=== PATIENT | female | born 1955 | race Caucasian/White ===

== ENCOUNTER → 2017-09-17 | Outpatient (CLI) | payer BC ==
[2017-09-17 07:48] LABS: HCT 42.4 % (34.0-46.0); HGB 13.8 gm/dL (11.4-16.0); MCH 29.2 pg (25.0-35.0); MCHC 32.6 g/dL (31.0-37.0); MCV 89.7 fL (80.0-100.0); Mean Platelet Volume 7.2; Platelet Count 297 k/uL (150-450); RBC 4.73 m/uL (3.80-5.40); RDW 12.7 % (11.5-15.5); WBC 8.3 k/uL (3.8-10.6)
[2017-09-17 08:23] LABS: Calcium 9.1 mg/dL (8.4-10.2); Potassium 4.3 mmol/L (3.5-5.1); Total Bilirubin 0.4 mg/dL (0.2-1.3); Total Protein 7.8 g/dL (6.3-8.2)
[2017-09-17 08:25] LABS: Appearance,Urine Clear (Clear); Bacteria,Urine Rare /hpf; Bilirubin,Urine Negative (Negative); Blood,Urine Negative (Negative); Color,Urine Yellow; Glucose,Urine (UA) Negative (Negative); Hyaline Casts,Urine 1 /lpf (0-2); Ketones,Urine Negative (Negative); Leukocyte Esterase,Urine Large (Negative); Mucus,Urine Rare /hpf; Protein,Urine Negative (Negative); RBC,Urine 2 /hpf (0-5); Specific Gravity,Urine 1.016 (1.001-1.035); Squamous Epithelial Cell,Urine 4 /hpf (0-4); WBC,Urine 14 /hpf (0-5)
[2017-09-17 08:33] LABS: T4, Free (Free Thyroxine) 1.4 ng/dL (0.78-2.19)
== END | disposition home or self-care (01) ==
LOC: LABWHC1 07:28
PROVIDERS: ATTEND Internal Medicine
DX: Z00.00 Encounter for general adult medical examination without abnormal findings (principal); E03.9 Hypothyroidism, unspecified; E78.5 Hyperlipidemia, unspecified; K58.9 Irritable bowel syndrome, unspecified; M19.90 Unspecified osteoarthritis, unspecified site; I10 Essential (primary) hypertension
CPT/HCPCS: 36415; 80053; 80061; 81001; 84439; 84443; 85027

== ENCOUNTER → 2018-10-30 | Outpatient (CLI) | payer BC ==
--- NOTE | 2018-10-30 16:52 | BD ---
EXAMINATION TYPE: Axial Bone Density DATE OF EXAM: 10/30/2018 COMPARISON: NONE CLINICAL HISTORY: Height: 5 FT 3 IN Weight: 175 FRAX RISK QUESTIONS: Secondary Osteoporosis: 3. Menopause before 45: YES RISK FACTORS HISTORY OF: Surgery to Spine/Hip(right/left)/Wrist (right/left): C SPINE FUSION When: 2009 Active: YES Postmenopausal woman: PART HYST AGE 41 MEDICATIONS: Thyroid Medications: YES Which medication: LEVOTHYROXINE How Long: APPROX 15 YEARS Additional Medications: LEVOTHYROXINE, BLOOD PRESSURE MEDS ,VIT D Additional History: EXAM MEASUREMENTS: Bone mineral densitometry was performed using the [employer] System. Bone mineral density as measured about the Lumbar spine is: ----- L1-L4(G/cm2): 1.227 T Score Values are as follows: ----- L2: 0.7 ----- L3: 0.6 ----- L4: -0.9 ----- L1-L4: 0.4 BASELINE Bone mineral density about the R hip (g/cm2): 0.939 Bone mineral density about the L hip (g/cm2): 0.976 T Score values are as follows: -----R Neck: -0.7 -----L Neck: -0.4 -----R Total: 0.3 -----L Total: 0.4 BASELINE IMPRESSION: Normal (Values between +1 and -1 indicate normal bone mass). Consider repeating this study in 5 year s or sooner if there is some new clinical indication. NOTE: T-SCORE=SD OF THE YOUNG ADULT MEAN.
--- NOTE | 2018-10-31 11:18 | MM ---
Reason for exam: screening (asymptomatic). Last mammogram was performed 2 years and 4 months ago. History: Benign excisional biopsy of the left breast, 2003. Physical Findings: A clinical breast exam by your physician is recommended on an annual basis and results should be correlated with mammographic findings. MG Screening Mammo w CAD Bilateral CC and MLO view(s) were taken. Prior study comparison: June 21, 2016, mammogram, performed at [facility]. June 17, 2015, mammogram, performed at [facility]. There are scattered fibroglandular densities. Previous mammotome biopsy in the left breast. Anterior lateral asymmetric density not seen previously. ASSESSMENT: Incomplete: need additional imaging evaluation, BI-RAD 0 RECOMMENDATION: Special view mammogram of the right breast. If lesion persists on supplemental views, image directed ultrasound is recommended. [facility] will attempt to contact patient to return for supplemental views and ultrasound if indicated.
== END | disposition home or self-care (01) ==
LOC: RADMAMWWP 15:19
PROVIDERS: ATTEND Internal Medicine
DX: Z12.31 Encounter for screening mammogram for malignant neoplasm of breast (principal); Z13.820 Encounter for screening for osteoporosis; Z78.0 Asymptomatic menopausal state
CPT/HCPCS: 77067; 77080

== ENCOUNTER → 2018-11-06 | Outpatient (CLI) | payer BC ==
--- NOTE | 2018-11-06 10:55 | MM ---
Reason for exam: additional evaluation requested from abnormal screening. Last mammogram was performed less than 1 month ago. History: Benign excisional biopsy of the left breast, 2003. Physical Findings: Nurse did not find any significant physical abnormalities on exam. MG Work Up Mamm w CAD RT Spot compression CC and ML view(s) were taken of the right breast. Prior study comparison: October 30, 2018, bilateral MG screening mammo w CAD. June 21, 2016, mammogram, performed at [facility]. There are scattered fibroglandular densities. The questioned asymmetric density does not persist. No significant new findings when compared with previous films. These results were verbally communicated with the patient and result sheet given to the patient on 11/06/18. ASSESSMENT: Negative, BI-RAD 1 RECOMMENDATION: Return to routine screening mammogram schedule for both breasts.
== END | disposition home or self-care (01) ==
LOC: RADMAMWWP 10:05
PROVIDERS: ATTEND Internal Medicine
DX: R92.8 Other abnormal and inconclusive findings on diagnostic imaging of breast (principal)
CPT/HCPCS: 77065

== ENCOUNTER → 2020-05-28 | Outpatient (CLI) | payer BC | END | disposition home or self-care (01) | LOC: LABWHC1 13:53 | PROVIDERS: ATTEND Internal Medicine | DX: Z20.828 Contact with and (suspected) exposure to other viral communicable diseases (principal) | CPT/HCPCS: U0003; C9803 ==

== ENCOUNTER → 2020-08-29 | Outpatient (CLI) | payer BC ==
--- NOTE | 2020-09-01 11:51 | MM ---
Reason for exam: screening (asymptomatic). Last mammogram was performed 1 year and 10 months ago. History: Patient is postmenopausal. Benign excisional biopsy of the left breast, 2003. Physical Findings: A clinical breast exam by your physician is recommended on an annual basis and results should be correlated with mammographic findings. MG 3D Screening Mammo W/Cad Bilateral CC and MLO view(s) were taken. Prior study comparison: October 30, 2018, bilateral MG screening mammo w CAD. June 21, 2016, mammogram, performed at [facility]. There are scattered fibroglandular densities. Previous mammotome biopsy in the left breast. No significant changes when compared with prior studies. ASSESSMENT: Negative, BI-RAD 1 RECOMMENDATION: Routine screening mammogram of both breasts in 1 year.
== END | disposition home or self-care (01) ==
LOC: RADMAMWWP 09:33
PROVIDERS: ATTEND Internal Medicine
DX: Z12.31 Encounter for screening mammogram for malignant neoplasm of breast (principal)
CPT/HCPCS: 77063; 77067

== ENCOUNTER → 2021-07-18 | Outpatient (CLI) | payer MEDICARE ==
[2021-07-18 09:32] LABS: Appearance,Urine Clear (Clear); Bilirubin,Urine Negative (Negative); Blood,Urine Negative (Negative); Color,Urine Yellow; Glucose,Urine (UA) Negative (Negative); Ketones,Urine Negative (Negative); Leukocyte Esterase,Urine Moderate (Negative); Mucus,Urine Rare /hpf; Nitrite,Urine Negative (Negative); Protein,Urine Trace (Negative); RBC,Urine 3 /hpf (0-5); Specific Gravity,Urine 1.025 (1.001-1.035); Squamous Epithelial Cell,Urine 2 /hpf (0-4); WBC,Urine 12 /hpf (0-5)
[2021-07-18 11:33] LABS: HCT 44.3 % (37.2-46.3); HGB 13.9 g/dL (12.0-15.0); MCH 28.9 pg (27.0-32.0); MCHC 31.4 g/dL (32.0-37.0); MCV 92.1 fL (80.0-97.0); Mean Platelet Volume 10.1 fL (9.5-12.2); Platelet Count 310 X 10*3/uL (140-440); RBC 4.81 X 10*6/uL (4.10-5.20); RDW 12.5 % (11.5-14.5); WBC 10.14 X 10*3/uL (4.50-10.00)
[2021-07-18 11:54] LABS: ALT 17 U/L (8-44); AST 22 U/L (13-35); African American GFR (CKD) 86.7 (60.0-200.0); Albumin 4.2 g/dL (3.8-4.9); Alkaline Phosphatase 92 U/L (41-126); BUN/Creat Ratio 14.82 Ratio (12.00-20.00); Blood Urea Nitrogen 12.2 mg/dL (9.0-27.0); Calcium 9.6 mg/dL (8.7-10.3); Carbon Dioxide 23.1 mmol/L (20.0-27.5); Chloride 100 mmol/L (96-109); Chol/HDL Ratio 3.33 Ratio; Globulin 3.8 g/dL (1.6-3.3); Glucose 127 mg/dL (70-110); LDL Cholesterol,Calculated 86.7 mg/dL (0.0-131.0); Non-African American GFR(CKD) 74.8 (60.0-200.0); Potassium 4.4 mmol/L (3.5-5.5); Sodium 137 mmol/L (135-145)
== END | disposition home or self-care (01) ==
LOC: LABWHC1 08:03
PROVIDERS: ATTEND Internal Medicine
DX: I10 Essential (primary) hypertension (principal); E78.5 Hyperlipidemia, unspecified; E03.9 Hypothyroidism, unspecified
CPT/HCPCS: 36415; 80053; 80061; 81001; 85027

== ENCOUNTER → 2022-07-16 | Outpatient (CLI) | payer MEDICARE ==
--- NOTE | 2022-07-16 12:18 | BD ---
EXAMINATION TYPE: Axial Bone Density DATE OF EXAM: 07/16/2022 COMPARISON: 10.30.2018 CLINICAL HISTORY: 67 years year old Female. ICD-10 CODE: N95.1 post menopausal symptoms Height: 62.2 Weight: 181 FRAX RISK QUESTIONS: History of Fracture in Adulthood: YES RISK FACTORS HISTORY OF: LT ANKLE FX AN ADULT Family History of Osteoporosis: YES, MOTHER Postmenopausal woman: YES, AT 50 Hyperparathyroidism: NO Adrenal Insufficiency: NO MEDICATIONS: Thyroid Medications: YES, SYNTHROID FOR ABOUT 10 YRS Additional Medications: VIT D3, BP MED, METFORMIN, Additional History: HYPERTENSION, THYROID, DIABETIC EXAM MEASUREMENTS: Bone mineral densitometry was performed using the [employer] System. Bone mineral density as measured about the Lumbar spine is: ----- L1-L4(G/cm2): 1.189 T Score Values are as follows: ----- L1: -0.7 ----- L2: -0.8 ----- L3: 1.1 ----- L4: 0.4 ----- L1-L4: 0.1 Bone mineral density has: Decreased -3.1% SINCE....10.30.2018 Bone mineral density about the R hip (g/cm2): 1.075 Bone mineral density about the L hip (g/cm2): 1.080 T Score values are as follows: -----R Neck: -0.2 -----L Neck: 0.0 -----R Total: 0.6 -----L Total: 0.5 Bone mineral density has: Increased -3.1% SINCE 10.30.2018 FRAX%s: The graph provided illustrates a 20.7% CHANCE FOR MAJOR OSTEOPOROTIC FX AND A 0.5% CHANCE F OR HIP....PROBABILITY FOR FX IN 10 YRS TIME IMPRESSION: Normal (Values between +1 and -1 indicate normal bone mass). Consider repeating this study in 5 year s or sooner if there is some new clinical indication. NOTE: T-SCORE=SD OF THE YOUNG ADULT MEAN.
--- NOTE | 2022-07-19 08:02 | MM ---
Reason for Exam: Screening (asymptomatic). Last mammogram was performed 1 year(s) and 11 month(s) ago. Patient History: Menarche at age 14. First Full-Term at age 18. Hysterectomy at age 41. Postmenopausal. 2003, Benign Excisional Biopsy on the left side. Risk Values: Anneliese 5 year model risk: 1.4%. NCI Lifetime model risk: 5.2%. Prior Study Comparison: 10/30/2018 Bilateral Screening Mammogram, [facility]. 11/06/2018 Right Diagnostic Mammogram, [facility]. 08/29/2020 Bilateral Screening Mammogram, [facility]. Tissue Density: The breast tissue is almost entirely fat. Findings: Analyzed By CAD. There is no suspicious group of microcalcifications or new suspicious mass in either breast. Overall Assessment: Negative, BI-RAD 1 Management: Screening Mammogram of both breasts in 1 year. A clinical breast exam by your physician is recommended on an annual basis and results should be correlated with mammographic findings. [facility] will attempt to contact patient to return for supplemental views and ultrasound if indicated. Electronically signed and approved by: Pedro Soares DO
== END | disposition home or self-care (01) ==
LOC: RADBDWWP 11:24
PROVIDERS: ATTEND Obstetrics & Gynecology
DX: Z12.31 Encounter for screening mammogram for malignant neoplasm of breast (principal); I10 Essential (primary) hypertension; E11.9 Type 2 diabetes mellitus without complications; N95.1 Menopausal and female climacteric states
CPT/HCPCS: 77063; 77067; 77080

== ENCOUNTER → 2022-10-25 | Outpatient (CLI) | payer MEDICARE ==
--- NOTE | 2022-10-25 12:59 | CTL ---
EXAMINATION TYPE: CT Low Dose Lung DATE OF EXAM ORDERED: 10/25/2022 HISTORY: Z87.891 PERSONAL HISTORY OF NICOTINE DEPENDENCE. Lung cancer screening CT DLP: 87.[address] CTDI: 2.4 mGy Automated exposure control for dose reduction was used. SCREENING VISIT: First screening visit COMPARISON: None TECHNIQUE: Low dose computed tomography scan was performed through the chest at 1 mm thick sections a nd reconstructed images in multiple planes at 1 mm and [address] DIAGNOSTIC QUALITY: Satisfactory FINDINGS: LUNG NODULES: Lateral left upper lobe tumor pulmonary nodule (series 3, image 89). Left lower lobe 3 mm groundglass nodule (series 3, image 268). Left lower lobe 3 mm groundglass nodule (series 3, image 266). Small adjacent 3 mm complex nodule (series 3, image 254). Lateral left lower lobe 3 mm groundg lass pulmonary nodule (series 3, image 232). Right lower lobe subpleural 5 mm pulmonary nodule (serie s 3, image 268). Right lower lobe 3 mm ground glass nodule (series 3, image 228). Right lower lobe 5 mm pulmonary nodule (series 3, image 187). Right lower lobe 3 mm pulmonary nodule (series 3, image 19 4). LUNGS: COPD: Severity: Mild Fibrosis: Severity: None Lymph nodes: None Other findings: None RIGHT PLEURAL SPACE: Effusion: None Calcification: None Thickening: None Pneumothorax: None LEFT PLEURAL SPACE: Effusion: None Calcification: None Thickening: None Pneumothorax: None HEART: Heart Size: Normal Coronary Calcification: Small Pericardial Effusion: None OTHER FINDINGS: Upper abdomen: Small hiatal hernia. Bony thorax: No acute osseous abnormality. Anterior cervical fusion hardware partially visualized. Supraclavicular region: None Other: None IMPRESSION: 1. Bilateral pulmonary nodules measuring up to [address] 2. Mild COPD changes. CT LUNG RAD AND CT CHEST RECOMMENDATION: Lung-Rad 2 Benign Appearance or Behavior: Continue annual sc reening with LDCT in 12 months. S Modifier (other clinically significant findings): None
== END | disposition home or self-care (01) ==
LOC: RADCTMAIN 12:10
PROVIDERS: ATTEND Family Medicine
DX: Z12.2 Encounter for screening for malignant neoplasm of respiratory organs (principal); J44.9 Chronic obstructive pulmonary disease, unspecified; R91.8 Other nonspecific abnormal finding of lung field; Z87.891 Personal history of nicotine dependence
CPT/HCPCS: 71271

== ENCOUNTER → 2023-07-20 | Outpatient (CLI) | payer MEDICARE ==
--- NOTE | 2023-07-24 15:51 | MM ---
Reason for Exam: Screening (asymptomatic). Last screening mammogram was performed 12 month(s) ago. Patient History: Menarche at age 14. First Full-Term at age 18. Hysterectomy at age 41. Postmenopausal. 2004, Benign Excisional Biopsy on the left side. Niece had breast cancer, age 49. Risk Values: Anneliese 5 year model risk: 1.4%. NCI Lifetime model risk: 5.0%. Prior Study Comparison: 11/06/2018 Right Diagnostic Mammogram, [facility]. 08/29/2020 Bilateral Screening Mammogram, [facility]. 07/16/2022 Bilateral MG 3D screening mammo w/cad, [facility]. Tissue Density: There are scattered fibroglandular densities. Findings: Analyzed By CAD. The pattern is symmetrical and stable. No significant interval changes. There is a core marker within the left breast. No suspicious groups of microcalcifications, spiculated or lobular masses, architectural distortion or other secondary signs of malignancy are mammographically apparent. Overall Assessment: Benign, BI-RAD 2 Management: Screening Mammogram of both breasts in 1 year. A negative mammogram report should not preclude additional follow up of suspicious palpable abnormalities. Patient should continue monthly self breast exam. A clinical breast exam by your physician is recommended on an annual basis and results should be correlated with mammographic findings. Electronically signed and approved by: Hugh Munson D.O. Radiologis
== END | disposition home or self-care (01) ==
LOC: RADMAMWWP 15:43
PROVIDERS: ATTEND Obstetrics & Gynecology
DX: Z12.31 Encounter for screening mammogram for malignant neoplasm of breast (principal); Z78.0 Asymptomatic menopausal state; Z80.3 Family history of malignant neoplasm of breast
CPT/HCPCS: 77063; 77067

== ENCOUNTER → 2023-08-05 | Outpatient (CLI) | payer MEDICARE ==
[2023-08-05 11:16] LABS: Basophils # (A) 0.08 X 10*3/uL (0.00-0.10); Basophils % (A) 0.9 %; Eosinophils # (A) 0.35 X 10*3/uL (0.04-0.35); HCT 41.6 % (37.2-46.3); HGB 13.4 g/dL (12.0-15.0); Lymphocytes # (A) 3.04 X 10*3/uL (0.90-5.00); MCH 28.9 pg (27.0-32.0); MCHC 32.2 g/dL (32.0-37.0); MCV 89.7 FL (80.0-97.0); Mean Platelet Volume 9.9 FL (9.5-12.2); Monocytes # (A) 1.04 X 10*3/uL (0.20-1.00); NRBC Per 100 WBC 0 X 10*3/uL (0.00-0.01); Neutrophils # (A) 4.14 X 10*3/uL (1.80-7.70); Neutrophils % (A) 47.8 %; Platelet Count 298 X 10*3/uL (140-440); RBC 4.64 X 10*6/uL (4.10-5.20); RDW 12.7 % (11.5-14.5); WBC 8.68 X 10*3/uL (4.50-10.00)
[2023-08-05 11:39] LABS: ALT 16 U/L (8-44); AST 19 U/L (13-35); Albumin/Globulin Ratio 1.08 Ratio (1.60-3.17); Alkaline Phosphatase 69 U/L (41-126); BUN/Creat Ratio 17.38 Ratio (12.00-20.00); Blood Urea Nitrogen 13.9 mg/dL (9.0-27.0); Calcium 9.7 mg/dL (8.7-10.3); Carbon Dioxide 26.4 mmol/L (21.6-31.8); Chloride 103 mmol/L (96-109); Chol/HDL Ratio 3.28 Ratio; Globulin 3.7 g/dL (1.6-3.3); Glucose 116 mg/dL (70-110); LDL Cholesterol,Calculated 87.7 mg/dL (0.0-131.0); Potassium 4.2 mmol/L (3.5-5.5); Sodium 142 mmol/L (135-145); Total Bilirubin 0.4 mg/dL (0.3-1.2); Total Protein 7.7 g/dL (6.2-8.2)
[2023-08-05 12:53] LABS: Microalbumin Creatinine Ratio <7 mg/g Cr (0-30)
== END | disposition home or self-care (01) ==
LOC: LABWHC1 07:01
PROVIDERS: ATTEND Family Medicine
DX: Z00.00 Encounter for general adult medical examination without abnormal findings (principal); E11.9 Type 2 diabetes mellitus without complications; E03.9 Hypothyroidism, unspecified
CPT/HCPCS: 36415; 80053; 80061; 82043; 82570; 83036; 84443; 85025

== ENCOUNTER 2024-01-03 07:56 | Day surgery (SDC) | payer MEDICARE ==
[2023-12-28 11:48] VITALS: BMI 29.8
[~2024-01-03 07:56] MED LIST: LIDOCAINE 1% (10MG/ML) FOR IV START INTRADERMA PRN
[2024-01-03 08:22] VITALS: TEMP 98.4
[2024-01-03] MEDS: IV FLUID CONTINUATION 1,000 ML IV ONE (08:23)
[2024-01-03] MEDS: LACTATED RINGERS 1,000 ML IV SCH (08:25)
[2024-01-03 08:35] LABS: Glucose,Whole Blood 104 mg/dL (70-110)
[2024-01-03] MEDS ORDERED: PROPOFOL 10 MG/ML 20 ML VIAL IV ONE (09:14)
--- NOTE | 2024-01-03 09:43 | P.PCN ---
Date of Procedure: 01/03/24 Procedure(s) Performed: BRIEF HISTORY: Patient is a 68-year-old pleasant white female scheduled for an elective colonoscopy as a part of screening for colon cancer and family history of colon cancer. Her mother was diagnosed with colon cancer at age 87. PROCEDURE PERFORMED: Colonoscopy with snare polypectomy and tattooing with Essence ink and Endo Clip placement. PREOPERATIVE DIAGNOSIS: Screening for colon cancer and family history of colon cancer. IV sedation per Anesthesia. PROCEDURE: After informed consent was obtained, the patient, was brought into the endoscopy unit. IV sedation was administered by Anesthesia under continuous monitoring. Digital rectal examination was normal. Initially the Olympus CF-160 flexible video colonoscope was then inserted in the rectum, gradually advanced into the cecum without any difficulty. Careful examination was performed as the scope was gradually being withdrawn. Ileocecal valve and the appendiceal orifice were visualized and appeared normal. Prep was excellent. Mucosa of the cecum, had a 3 cm broad-based polyp that was removed by piecemeal snare polypectomy and complete polypectomy accomplished. In the ascending colon just proximal to the ileocecal valve there was a 1.5 cm broad-based polyp that was removed by piecemeal snare polypectomy followed by tattooing with Essence ink and Endo Clip placement. Rest of the ascending colon, transverse colon, descending colon, sigmoid colon, and rectum appeared normal. Scattered sigmoid diverticulosis. Retroflexion was performed in the rectum and no lesions were seen. The patient tolerated the procedure well. IMPRESSION: 3 cm broad-based cecal polyp status post piecemeal snare polypectomy and complete polypectomy accomplished 1.5 cm proximal ascending colon polyp just above the ileocecal valve s/p snare polypectomy followed by Endo Clip placement and tattooing with Essence ink. Scattered sigmoid diverticulosis. RECOMMENDATIONS: Findings of this examination were discussed with the patient as well as her family. She was advised to follow-up with the biopsy results. She will be seen in the office in 2 weeks. Based on the biopsy results we will plan a repeat colonoscopy in 6 months to 1 year.
[2024-01-03 09:59] VITALS: BP 148/54; PULSE 59; RESP 15
== END 2024-01-03 10:24 | disposition home or self-care (01) ==
LOC: ORWHC2ENDO 07:56
PROVIDERS: ATTEND Internal Medicine Gastroenterology
DX: C18.2 Malignant neoplasm of ascending colon (principal); K57.30 Diverticulosis of large intestine without perforation or abscess without bleeding; D12.0 Benign neoplasm of cecum; D12.2 Benign neoplasm of ascending colon; Z80.0 Family history of malignant neoplasm of digestive organs
CPT/HCPCS: 88305; 88342; 88341; 45385; 45381; J2704

== ENCOUNTER → 2024-01-10 | Outpatient (CLI) | payer MEDICARE ==
[2024-01-10 12:55] LABS: African American GFR (CKD) >90 (>60 ml/min/1.73 sqM); Blood Urea Nitrogen 14 mg/dL (7-17); Non-African American GFR(CKD) 90 (>60 ml/min/1.73 sqM)
--- NOTE | 2024-01-11 12:29 | CT ---
EXAMINATION TYPE: CT ChestAbdPelvis w con CT DLP: 2053 mGycm, Automated exposure control for dose reduction was used. DATE OF EXAM: 01/10/2024 2:18 PM COMPARISON: 10/25/2022. CLINICAL INDICATION:Female, 68 years old with history of Z12.2 SCREEN FOR MALIGNANT NEOPLASM OF RESP I; PHH, Primary adenocarcinoma, malignant neoplasm of colon, recent colonoscopy and diagnosis. Technique: CT ChestAbdPelvis w con; Multiple axial images were obtained. Two-dimensional coronal and sagittal reconstructions were obtained. Contrast used:100 mL of Isovue 300 with IV Contrast, Oral contrast used: with Oral Contrast Findings: CHEST: LUNGS/ PLEURA: Stable appearance of the pulmonary nodules. No new or enlarging pulmonary nodules. Sim ilar right lower lobe 5 mm nodule series 3 image 32 with adjacent 3 mm pulmonary nodule. Stable right costophrenic angle posteriorly elongated nodule with overall morphology. No focal consolidation, pne umothorax or pleural effusion. Mild paraseptal emphysema changes. AIRWAY: Patent and unremarkable. HEART: Size within normal limits. MEDIASTINUM: No gross evidence of adenopathy. VASCULATURE: No aortic aneurysm. MUSCULOSKELETAL: No acute osseous abnormalities. SOFT TISSUES/LYMPH NODES: Unremarkable. LOWER NECK: No significant findings. ABDOMEN: ABDOMEN LIVER: Unremarkable GALLBLADDER AND BILE DUCTS: Unremarkable. PANCREAS: Unremarkable. SPLEEN: Unremarkable. ADRENAL GLANDS: Unremarkable. KIDNEYS AND URETERS: No evidence of hydronephrosis or renal calculus. The ureters are unremarkable. PELVIS BLADDER: Unremarkable REPRODUCTIVE: Unremarkable. ABDOMEN & PELVIS STOMACH AND BOWEL: No evidence of bowel obstruction. PERITONEUM: No evidence of pneumoperitoneum or free fluid. VASCULATURE: No evidence of aortic aneurysm. MUSCULOSKELETAL: No acute osseous abnormalities LYMPH NODES: No gross evidence for lymphadenopathy. Is surgically no greater than 1.0 cm in short axi s lymph nodes. Few nonenlarged retroperitoneal lymph nodes including series 3 image 70 between the ao rta and IVC measuring 9 mm. SOFT TISSUE/ABDOMINAL WALL: Unremarkable IMPRESSION: 1. Stable pulmonary nodules. No new or enlarging pulmonary nodules. Continued surveillance recommend ed. No evidence for lymphadenopathy in the thorax abdomen or pelvis. 2. Scattered colonic diverticula.
== END | disposition home or self-care (01) ==
LOC: RADCTMAIN 11:55
PROVIDERS: ATTEND Internal Medicine Gastroenterology
DX: Z12.2 Encounter for screening for malignant neoplasm of respiratory organs (principal); C18.2 Malignant neoplasm of ascending colon; R91.8 Other nonspecific abnormal finding of lung field; K57.30 Diverticulosis of large intestine without perforation or abscess without bleeding
CPT/HCPCS: 82565; 84520; 71260; 74177; 36415; Q9967

== ENCOUNTER 2024-02-17 07:00 | Inpatient (IN) | payer MEDICARE ==
[~2024-02-17 07:00] MED LIST changes: +ACETAMINOPHEN TAB 500 MG TAB ONE; +ALVIMOPAN 12 MG CAPSULE ONE; +DEXAMETHASONE SOD PHOSPHATE 4 MG/ML 1 ML VIAL ONE; +HEPARIN SODIUM,PORCINE 5,000 UNIT/ML 1 ML VIAL ONE; +LACTATED RINGERS 1,000 ML BAG ONE; -LIDOCAINE 1% (10MG/ML) FOR IV START INTRADERMA PRN; +MIDAZOLAM 2 MG/2 ML VIAL ONE; +ONDANSETRON 4 MG/2 ML VIAL ONE; +ROPIVACAINE 5 MG/ML 30 ML VIAL ONE; +fentaNYL (PF) 50 MCG/ML 2 ML AMP ONE
[2024-02-17] MEDS ORDERED: PHENYLEPHRINE-0.9% NACL SYG 1,000 MCG/10 ML SYRINGE ONE (07:25)
[2024-02-17] MEDS ORDERED: ROPIVACAINE 5 MG/ML 30 ML VIAL ONE (07:25)
[2024-02-17] MEDS ORDERED: KETAMINE HCL IN 0.9 % NACL 50 MG/5 ML SYRINGE ONE (07:25)
[2024-02-17] MEDS ORDERED: LABETALOL 5 MG/ML VIAL MDV ONE (07:25)
[2024-02-17] MEDS ORDERED: ePHEDrine 50 MG/ML 1 ML VIAL ONE (07:25)
[2024-02-17] MEDS ORDERED: hydrALAZINE HCL 20 MG/ML 1 ML VIAL ONE (07:25)
[2024-02-17] MEDS ORDERED: HYDROmorphone (PF) 1 MG/ML ONE (07:25)
[2024-02-17] MEDS ORDERED: SUCCINYLCHOLINE CHLORIDE 200 MG/10 ML VIAL IV ONE (07:25)
[2024-02-17] MEDS ORDERED: LIDOCAINE 1% INJ 10MG/ML (20 ML MDV) ONE (07:25)
[2024-02-17] MEDS ORDERED: fentaNYL (PF) 50 MCG/ML 2 ML AMP ONE (07:25)
[2024-02-17] MEDS ORDERED: ROCURONIUM 10 MG/ML (5 ML VIAL) IV ONE (07:25)
[2024-02-17] MEDS ORDERED: SODIUM CHLORIDE 0.9% (PF) 10 ML VIAL ONE (07:25)
[2024-02-17] MEDS ORDERED: MIDAZOLAM 2 MG/2 ML VIAL ONE (07:25)
[2024-02-17] MEDS ORDERED: PROPOFOL 10 MG/ML 20 ML VIAL IV ONE (07:25)
[2024-02-17] MEDS ORDERED: NEOSTIGMINE 1 MG/ML 10 ML VIAL ONE (07:25)
[2024-02-17] MEDS ORDERED: WATER FOR INJECTION, STERILE 10 ML VIAL IV ONE (07:25)
[2024-02-17] MEDS ORDERED: GLYCOPYRROLATE 0.2 MG/ML 2 ML VIAL ONE (07:25)
[2024-02-17] MEDS ORDERED: DEXAMETHASONE SOD PHOSPHATE 4 MG/ML 1 ML VIAL ONE (07:25)
[2024-02-17] MEDS ORDERED: LIDOCAINE 1%-EPI 1:100,000 20 ML VIAL ONE (08:30)
[2024-02-17] MEDS ORDERED: ceFAZolin 1,000 MG VIAL ONE ×2 (09:00→23:59)
[2024-02-17] MEDS ORDERED: SODIUM CHLORIDE 0.9% 100 ML BAG IV ONE (09:00)
[2024-02-17] MEDS ORDERED: metroNIDAZOLE-NS PMX 500 MG/100 ML BAG ONE (09:00)
[2024-02-17 11:49] LABS: Glucose,Whole Blood 206 mg/dL (70-110)
[2024-02-17] MEDS ORDERED: INSULIN ASPART (NovoLOG) 100 UNIT/ML VIAL SQ ONE (12:15)
[2024-02-17] MEDS ORDERED: SODIUM CHLORIDE 0.9% 1,000 ML BAG ONE (12:18)
[2024-02-17] MEDS ORDERED: HEPARIN SODIUM,PORCINE 5,000 UNIT/ML 1 ML VIAL ONE ×2 (16:14→23:40)
[2024-02-17] MEDS ORDERED: metroNIDAZOLE-NS PMX 100 ML ONE ×2 (16:14→23:24)
[2024-02-17 16:55] LABS: Glucose,Whole Blood 169 mg/dL (70-110)
[2024-02-17] MEDS ORDERED: ONDANSETRON 4 MG/2 ML VIAL ONE ×4 (17:20→23:41)
[2024-02-17] MEDS ORDERED: KETOROLAC 15 MG/ML 1 ML VIAL ONE ×4 (17:20→23:24)
[2024-02-17] MEDS ORDERED: ACETAMINOPHEN TAB 500 MG TAB ONE ×2 (18:49)
[2024-02-17] MEDS ORDERED: FAMOTIDINE 20 MG/2 ML VIAL ONE ×2 (20:50)
[2024-02-17] MEDS ORDERED: ALVIMOPAN 12 MG CAPSULE ONE (20:50)
[2024-02-17] MEDS ORDERED: ACETAMINOPHEN TAB 325 MG TAB ONE ×2 (23:28)
[2024-02-17] MEDS ORDERED: SODIUM CHLORIDE 0.9% 50 ML BAG ONE (23:59)
[2024-02-17] MEDS ORDERED: D5-0.45% NACL WITH KCL 20MEQ/L 1,000 ML BAG IV ONE (23:59)
[2024-02-18 05:12] LABS: Glucose,Whole Blood 142 mg/dL (70-110)
[2024-02-18] MEDS ORDERED: KETOROLAC 15 MG/ML 1 ML VIAL ONE ×8 (05:26→23:33)
[2024-02-18] MEDS ORDERED: ACETAMINOPHEN TAB 325 MG TAB ONE ×4 (05:26→23:34)
[2024-02-18] MEDS ORDERED: ONDANSETRON 4 MG/2 ML VIAL ONE ×8 (05:27→23:34)
[2024-02-18] MEDS ORDERED: metFORMIN 500 MG TAB ONE (07:47)
[2024-02-18] MEDS ORDERED: metroNIDAZOLE-NS PMX 100 ML ONE (07:48)
[2024-02-18] MEDS ORDERED: FAMOTIDINE 20 MG/2 ML VIAL ONE ×4 (07:49→21:20)
[2024-02-18] MEDS ORDERED: HEPARIN SODIUM,PORCINE 5,000 UNIT/ML 1 ML VIAL ONE (07:50)
[2024-02-18] MEDS ORDERED: ALVIMOPAN 12 MG CAPSULE ONE (07:51)
[2024-02-18] MEDS ORDERED: CHOLECALCIFEROL 25 MCG (1000 IU) TABLET ONE (08:01)
[2024-02-18 11:48] LABS: Glucose,Whole Blood 95 mg/dL (70-110)
[2024-02-18] MEDS ORDERED: ACETAMINOPHEN TAB 500 MG TAB ONE ×4 (12:26→17:55)
[2024-02-18] MEDS ORDERED: BENZOCAINE/MENTHOL LOZENG 1 EACH LOZENGE MUCOUS MEM ONE (21:20)
[2024-02-18] MEDS ORDERED: FUROSEMIDE 10 MG/ML 2 ML VIAL ONE ×2 (22:15)
[2024-02-18] MEDS ORDERED: hydrALAZINE HCL 20 MG/ML 1 ML VIAL ONE ×2 (22:29)
[2024-02-18 23:24] LABS: Glucose,Whole Blood 86 mg/dL (70-110)
[2024-02-19] MEDS ORDERED: KETOROLAC 15 MG/ML 1 ML VIAL ONE ×2 (06:10)
[2024-02-19] MEDS ORDERED: ONDANSETRON 4 MG/2 ML VIAL ONE ×4 (06:11→12:17)
[2024-02-19] MEDS ORDERED: ACETAMINOPHEN TAB 325 MG TAB ONE ×2 (06:11)
[2024-02-19] MEDS ORDERED: CHOLECALCIFEROL 25 MCG (1000 IU) TABLET ONE (08:34)
[2024-02-19] MEDS ORDERED: HEPARIN SODIUM,PORCINE 5,000 UNIT/ML 1 ML VIAL ONE (08:36)
[2024-02-19] MEDS ORDERED: metFORMIN 500 MG TAB ONE (08:36)
[2024-02-19] MEDS ORDERED: FAMOTIDINE 20 MG/2 ML VIAL ONE ×2 (08:36)
[2024-02-19] MEDS ORDERED: amLODIPine 5 MG TAB ONE (09:59)
[2024-02-19] MEDS ORDERED: ACETAMINOPHEN TAB 500 MG TAB ONE ×2 (12:17)
--- NOTE | 2024-05-07 06:25 | P.GSHP ---
History of Present Illness H&P Date: 02/17/24 CHIEF COMPLAINT: Colon cancer HISTORY OF PRESENT ILLNESS: The patient is a 68-year-old female recently diagnosed with cecal colon cancer. She underwent cardiac risk assessment including optimization prior to surgery as well as a high-protein low carbohydrate 2-week diet. Patient presents for surgical resection. PAST MEDICAL HISTORY: Please see list. PAST SURGICAL HISTORY: Please see list. MEDICATIONS: Please see list. ALLERGIES: Please see list. SOCIAL HISTORY: No illicit drug use FAMILY HISTORY: No reports of Crohn disease or ulcerative colitis. REVIEW OF ORGAN SYSTEMS: CONSTITUTIONAL: Denies any fever or chills. HEENT: Denies any trouble with vision or nosebleeds. No difficulty swallowing. LYMPHATIC: The patient denies any lumps and bumps around the neck. ENDOCRINE: Has hypothyroidism. RESPIRATORY: Denies pneumonia. Denies any troubles with breathing or dyspnea on exertion. CARDIOVASCULAR: Denies any chest pain, palpitations, or recent heart attacks GASTROINTESTINAL: Has gastroesophageal reflux disease. New diagnosis colon cancer. GENITOURINARY: No blood in urine. MUSCULOSKELETAL: Has back pain, stiffness, joint arthritis. NEUROLOGIC: Denies any numbness or tingling along the distal extremities. No seizure disorders or headaches. PSYCHIATRIC: Denies depression or suidical ideation. HEMATOLOGIC: Denies any abnormal bleeding or bruising. PHYSICAL EXAM: VITAL SIGNS: Stable GENERAL: Well-developed pleasant in no acute distress. HEENT: No scleral icterus. Extraocular movements grossly intact. Moist buccal mucosa. NECK: Supple without lymphadenopathy. CHEST: Unlabored respirations. Equal bilateral excursions. CARDIOVASCULAR: Regular rate and rhythm. Distal 2+ pulses. ABDOMEN: Soft, nontender, nondistended. MUSCULOSKELETAL: No clubbing, cyanosis, or edema. NERUO: Cranial nerves II through XII grossly intact PSYCH: Alert and oriented to person place and time. ASSESSMENT: 1. Colon cancer, cecal. 2. Hypothyroidism 3. Hypertensive heart disease 4. Diabetes type 2, not insulin-dependent PLAN: 1. Benefits and risk of right hemicolectomy described robotic assisted approach. 2. Patient is elevated risk due to pre-existing comorbidities. 3. Inpatient hospitalization described. Past Medical History Past Medical History: Diabetes Mellitus, Hypertension, Thyroid Disorder Additional Past Medical History / Comment(s): IBSD-STABLE AT THIS TIME History of Any Multi-Drug Resistant Organisms: None Reported Past Surgical History: Adenoidectomy, Orthopedic Surgery, Tonsillectomy, Tubal Ligation Additional Past Surgical History / Comment(s): CERVICAL FUSION. COLONOSCOPY Past Anesthesia/Blood Transfusion Reactions: No Reported Reaction Past Psychological History: No Psychological Hx Reported Smoking Status: Former smoker Past Alcohol Use History: None Reported Additional Past Alcohol Use History / Comment(s): QUIT SMOKING 2009 Past Drug Use History: None Reported - Past Family History Mother Family Medical History: Cancer Sister(s) Family Medical History: Cancer Medications and Allergies Home Medications Medication Instructions Recorded Confirmed Type Bisoprolol-Hctz 2.5-6.25 mg [Ziac 1 tab PO DAILY 12/28/23 12/28/23 History 2.5-6.25 MG] Cholecalciferol (Vitamin D3) 50 mcg PO SUTUWEFRSA 12/28/23 12/28/23 History [Vitamin D3 (50 Mcg = 2000 Iu)] Cholecalciferol (Vitamin D3) 100 mcg PO MOTH 12/28/23 12/28/23 History [Vitamin D3 (50 Mcg = 2000 Iu)] Levothyroxine Sodium [Synthroid] 88 mcg PO MOWETHSA 12/28/23 12/28/23 History Levothyroxine Sodium [Synthroid] 132 mcg PO SUTUFR 12/28/23 12/28/23 History metFORMIN HCL 500 mg PO AC-LUNCH 12/28/23 12/28/23 History Allergies Allergy/AdvReac Type Severity Reaction Status Date / Time cephalexin [From Keflex] Allergy Rash/Hives Verified 12/28/23 11:41 codeine Allergy Dyspnea Verified 12/28/23 11:41 Fish Containing Products AdvReac Nausea & Verified 12/28/23 11:41 Vomiting & Diarrhea
--- NOTE | 2024-05-07 06:32 | P.OP ---
Date of Procedure: 02/17/24 Description of Procedure: SURGEON: CASSIUS LÓPEZ MD Preoperative Diagnosis: 1. Colon cancer, cecal. 2. Hypothyroidism 3. Hypertensive heart disease 4. Diabetes type 2, not insulin-dependent Postoperative Diagnosis: 1. Colon cancer, cecal. 2. Hypothyroidism 3. Hypertensive heart disease 4. Diabetes type 2, not insulin-dependent 5. Fatty liver disease with hepatomegaly Procedure(s) Performed: 1. Robot-assisted daVinci Xi laparoscopic extended right hemicolectomy Anesthesia: GETA, local, regional block Estimated Blood Loss (ml): 20 Condition: stable SPECIMENS REMOVED: 1. Terminal ileum and extended right colon en bloc 2. Anastomosis 3. Omentum COMPLICATIONS: None. Disposition: floor Operative Findings: 1. Liver surface unremarkable for hepatic nodules or metastases 2. More than 6 cm border obtained from cecum along ileum 3. No peritoneal metastases identified 4. Extended right hemicolectomy to mid transverse colon 5. No gross local invasion identified of cecal mass, over 5 cm 6. Tatto found 7. Appendix present 8. Liver fatty without lesions 9. Left upper quadrant 2 cm incision removal INDICATIONS: The patient is a 68-year-old female who presents with cecal colon cancer. Surgical intervention with colon resection was described in detail. Benefits and risks, including infection, injury to adjacent structures, open surgery possibility for additional surgery was discussed at length. Informed consent was obtained. All questions of the patient and family were answered. DESCRIPTION: Earlier the patient had undergone a bowel prep using the enhanced colon recovery program. The patient was transferred to the operating room and placed in supine position. After general anesthetic, a ervin catheter was placed. The abdomen was prepped and draped in standard sterile fashion as Ioban was placed along the abdomen to minimize any contamination of skin floor. After a timeout protocol was performed, attention was then brought to the left upper quadrant whereby a 0 degree 5 mm laparoscopic trocar entry was performed. The abdominal cavity was entered and insufflated to 15 mmHg pressure, which was tolerated well. Diagnostic laparoscopy demonstrated no injury to bowel, viscera or mesentery. The liver was unremarkable for hepatic metastases but present for fatty liver disease. Next trochars were placed along the left lateral abdomen. Two robotic 8-mm trocars were placed along the left lower abdomen. A 12 mm port was placed along the left upper quadrant. Ports were placed 9 cm apart from each other including 15-20 cm away from the target anatomy of the right pelvis. The 5-mm port was exchanged for a 12 mm robotic port. The patient was then placed in right side up 7 and reverse Trendelenburg 7. The robotic da Wendy XI system was primed and docked from the left side of the patient. Using atraumatic graspers and vessel sealer, the robotic system was docked and primed as described. Instruments were interchanged by the assistant professor of radiology including scissors, needle putaway driver, robotic stapler and vessel sealer. Next, attention was brought to identify the cecum. A stay suture using 0 silk was placed along the anterior serosa of the along the terminal ileum. The terminal ileum and ascending colon mesentery was mobilized using a vessel sealer whereby the colon was marked and tagged. The redundant hepatic flexure with moderate retroperitoneal attachments and dissection is performed for additional 1-2 hours. The colon was prepared for resection along the mid transverse colon including for resection along the terminal ileum. Using robot stapler 60 mm blue load, the distal ileum was divided 8 centimeters proximal to the ileocecal valve. The mesentery of the ascending colon was mobilized towards the midline using a vessel sealer. The right colon was mobilized to the mid transverse colon and prepared for resection. The colon was divided using 60 mm green loads. The rest of the colon mesentery was mobilized using vessel sealer including using blunt dissection. The ascending colon was mobilized from proximal to distal with the meeting point of the hepatic flexure. The vascular pedicle of the ileocolic artery was controlled using vessel sealer. The mid transverse colon and distal ileum was brought in a side to side antiperistaltic anastomotic fashion after placing interrupted sutures along the proposed barbara-lumen using 3-0 silk. A colotomy and enterotomy was prepared along both limbs along the antimesenteric border. Next, 60 mm green stapler loads were fired to create the barbara-lumen and hemostatic. The barbara-lumen was reapproximated using 3-0 silk followed by 60 mm green loads for closure of the enterostomy. All needles and sponges were removed from the abdominal cavity. Next, a 15 mm Endo Catch bag was placed by the assistant professor of radiology through the 12 mm trocar of the left upper quadrant. Specimen was placed. The robot was undocked. I re-scrubbed into the case. Via the 12 mm port of the left upper quadrant, the right colon was removed after widening the skin incision to 2-cm using 15-mm Endo Catch bag. The fascial defect was oversewn using 0 Vicryl and Chris Washburn. Next all pneumoperitoneum was evacuated from the abdominal cavity. The 8-mm trocar sites were reapproximated using 4-0 Monocryl in an interrupted subcuticular fashion. Local anesthetic was infiltrated to all wounds for postop analgesia. All incisions were also cleansed with diluted hydrogen peroxide. Liquid was applied to the rest of the skin incisions. The patient had tolerated the procedure well. The patient was extubated successfully. Intraoperative photos were reviewed with the patient's family who were overall pleased with the level of care. The patient was transferred to the postanesthesia care unit in stable condition.
--- NOTE | 2024-05-07 06:36 | P.PN ---
Subjective Progress Note Date: 02/18/24 CHIEF COMPLAINT: Colon cancer HISTORY OF PRESENT ILLNESS: The patient is a 68-year-old female admitted for colon cancer. Reports mild nausea including pain. She is on low fiber diet. ROS: No bowel movements. No fevers or chills. No new chest pain. No productive sputum PHYSICAL EXAM: VITAL SIGNS: Reviewed CONSTITUTIONAL: Well developed and in no acute distress. EYES: Conjuctivae without sclera icterus. Extraocular movements grossly intact. HEAD, EARS, NOSE, THROAT: Moist buccal mucosa. Head is atraumatic, normocephalic. Hears conversational speech. No nasal drainage. RESPIRATORY: Non-labored respirations and equal bilateral excursions. CARDIOVASCULAR: Palpable 2+ radial pulses. ABDOMEN: Incision clean dry intact. MUSCULOSKELETAL: No gross deformity of the lower extremities noted. No clubbing. No cyanosis. SKIN: Good skin turgor. Well perfused. NEUROLOGIC: Cranial nerves II through XII grossly intact. No focal or lateralizing signs. PSYCH: Appropriate affect. Alert and oriented to person, place and time. CLINICAL LABS: Reviewed. ASSESSMENT: 1. Colon cancer PLAN: 1. Continue low fiber diet. 2. 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 Anticipate discharge tomorrow.
--- NOTE | 2024-05-07 06:41 | P.DS ---
Providers Date of admission: 02/17/24 07:00 Expected date of discharge: 02/19/24 Attending physician: Arely Jean Primary care physician: Juventino Falcon MD Hospital Course: Postoperative Diagnosis: 1. Colon cancer, cecal. 2. Hypothyroidism 3. Hypertensive heart disease 4. Diabetes type 2, not insulin-dependent 5. Fatty liver disease with hepatomegaly COURSE The patient is a 68-year-old female who presents with cecal colon cancer. She underwent robotic colectomy. Postoperatively, patient was tolerating low fiber diet. Her pain was well-controlled. Nonnarcotic pain management upon discharge reviewed with close outpatient follow-up. Discharge instructions were verbalized. Procedures: Procedure(s) Performed: 1. Robot-assisted daVinci Xi laparoscopic extended right hemicolectomy Anesthesia: GETA, local, regional block Estimated Blood Loss (ml): 20 Condition: stable SPECIMENS REMOVED: 1. Terminal ileum and extended right colon en bloc 2. Anastomosis 3. Omentum COMPLICATIONS: None. Disposition: floor Operative Findings: 1. Liver surface unremarkable for hepatic nodules or metastases 2. More than 6 cm border obtained from cecum along ileum 3. No peritoneal metastases identified 4. Extended right hemicolectomy to mid transverse colon 5. No gross local invasion identified of cecal mass, over 5 cm 6. Tatto found 7. Appendix present 8. Liver fatty without lesions 9. Left upper quadrant 2 cm incision removal Patient Condition at Discharge: Stable Plan - Discharge Summary New Discharge Prescriptions: No Action Levothyroxine Sodium [Synthroid] 88 mcg PO MOWETHSA Bisoprolol-Hctz 2.5-6.25 mg [Ziac 2.5-6.25 MG] 1 tab PO DAILY metFORMIN HCL 500 mg PO AC-LUNCH Levothyroxine Sodium [Synthroid] 132 mcg PO SUTUFR Cholecalciferol (Vitamin D3) [Vitamin D3 (50 Mcg = 2000 Iu)] 100 mcg PO MOTH Cholecalciferol (Vitamin D3) [Vitamin D3 (50 Mcg = 2000 Iu)] 50 mcg PO SUTUWEFRSA Discharge Medication List Bisoprolol-Hctz 2.5-6.25 mg [Ziac 2.5-6.25 MG] 1 tab PO DAILY 12/28/23 [History] Cholecalciferol (Vitamin D3) [Vitamin D3 (50 Mcg = 2000 Iu)] 50 mcg PO SUTUWEFRSA 12/28/23 [History] Cholecalciferol (Vitamin D3) [Vitamin D3 (50 Mcg = 2000 Iu)] 100 mcg PO MOTH 12/28/23 [History] Levothyroxine Sodium [Synthroid] 88 mcg PO MOWETHSA 12/28/23 [History] Levothyroxine Sodium [Synthroid] 132 mcg PO SUTUFR 12/28/23 [History] metFORMIN HCL 500 mg PO AC-LUNCH 12/28/23 [History] Discharge Disposition: HOME SELF-CARE
== END 2024-02-19 16:00 | disposition home or self-care (01) | DRG 331 ==
LOC: DISRECOVER 07:00
PROVIDERS: ADMIT Surgery Plastic and Reconstructive Surgery; ATTEND Surgery Plastic and Reconstructive Surgery
PROC: 0DTF4ZZ Resection of Right Large Intestine, Percutaneous Endoscopic Approach (ICD-10-PCS; 2024-02-17)
PROC: 8E0W4CZ Robotic Assisted Procedure of Trunk Region, Percutaneous Endoscopic Approach (ICD-10-PCS; principal; 2024-02-17 07:30)
DX: C18.0 Malignant neoplasm of cecum (principal); E11.9 Type 2 diabetes mellitus without complications; I10 Essential (primary) hypertension; I11.9 Hypertensive heart disease without heart failure; K76.0 Fatty (change of) liver, not elsewhere classified; E03.9 Hypothyroidism, unspecified; Z87.891 Personal history of nicotine dependence; Z79.84 Long term (current) use of oral hypoglycemic drugs; Z79.899 Other long term (current) drug therapy; Z79.890 Hormone replacement therapy
CPT/HCPCS: 64999; 82728; 83540; 83550; 86850; 86900; 86901; 88305; 88307; 88309

== ENCOUNTER 2024-12-26 08:11 | Day surgery (SDC) | payer MEDICARE ==
[~2024-12-26 08:11] MED LIST changes: -ACETAMINOPHEN TAB 500 MG TAB ONE; -ALVIMOPAN 12 MG CAPSULE ONE; -DEXAMETHASONE SOD PHOSPHATE 4 MG/ML 1 ML VIAL ONE; -HEPARIN SODIUM,PORCINE 5,000 UNIT/ML 1 ML VIAL ONE; -LACTATED RINGERS 1,000 ML BAG ONE; +LACTATED RINGERS 1,000 ML IV SCH; -MIDAZOLAM 2 MG/2 ML VIAL ONE; -ONDANSETRON 4 MG/2 ML VIAL ONE; -ROPIVACAINE 5 MG/ML 30 ML VIAL ONE; -fentaNYL (PF) 50 MCG/ML 2 ML AMP ONE
[2024-12-26] MEDS: IV FLUID CONTINUATION 1,000 ML IV ONE (08:30)
[2024-12-26 08:37] VITALS: TEMP 97.7
[2024-12-26 08:41] LABS: Glucose,Whole Blood 106 mg/dL (70-110)
--- NOTE | 2024-12-26 08:42 | P.GSHP ---
History of Present Illness H&P Date: 12/26/24 CHIEF COMPLAINT: Colon screen HISTORY OF PRESENT ILLNESS: The patient is a 69-year-old female who presents for colon screen. Lower endoscopy was offered for further evaluation and management. PAST MEDICAL HISTORY: Please see list. PAST SURGICAL HISTORY: Please see list. MEDICATIONS: Please see list. ALLERGIES: Please see list. SOCIAL HISTORY: No illicit drug use FAMILY HISTORY: No reports of Crohn disease or ulcerative colitis. REVIEW OF ORGAN SYSTEMS: CONSTITUTIONAL: No reports of fevers or chills. PHYSICAL EXAM: VITAL SIGNS: Stable GENERAL: Well-developed pleasant in no acute distress. HEENT: No scleral icterus. Extraocular movements grossly intact. Moist buccal mucosa. NECK: Supple without lymphadenopathy. CHEST: Unlabored respirations. Equal bilateral excursions. CARDIOVASCULAR: Regular rate and rhythm. Distal 2+ pulses. ABDOMEN: Soft, nontender, nondistended. MUSCULOSKELETAL: No clubbing, cyanosis, or edema. ASSESSMENT: 1. Colon screen. PLAN: 1. Recommend proceeding with a lower endoscopy Past Medical History Past Medical History: Cancer, Diabetes Mellitus, Hypertension, Thyroid Disorder Additional Past Medical History / Comment(s): IBSD-STABLE AT THIS TIME,, colon 2023 History of Any Multi-Drug Resistant Organisms: None Reported Past Surgical History: Adenoidectomy, Bowel Resection, Orthopedic Surgery, Tonsillectomy, Tubal Ligation Additional Past Surgical History / Comment(s): CERVICAL FUSION, breast bx with marker placed. COLONOSCOPY Past Anesthesia/Blood Transfusion Reactions: No Reported Reaction Additional Past Anesthesia/Blood Transfusion Reaction / Comment(s): with last colonscopy could hear people talking but felt nothing Smoking Status: Former smoker - Past Family History Mother Family Medical History: Cancer Sister(s) Family Medical History: Cancer Medications and Allergies Home Medications Medication Instructions Recorded Confirmed Type Bisoprolol-Hctz 2.5-6.25 mg [Ziac 1 tab PO 1200 12/28/23 12/26/24 History 2.5-6.25 MG] Cholecalciferol (Vitamin D3) 50 mcg PO SUTUWEFRSA 12/28/23 12/26/24 History [Vitamin D3 (50 Mcg = 2000 Iu)] Cholecalciferol (Vitamin D3) 100 mcg PO MOTH 12/28/23 12/26/24 History [Vitamin D3 (50 Mcg = 2000 Iu)] Levothyroxine Sodium [Synthroid] 88 mcg PO MOWETHSA 12/28/23 12/26/24 History Levothyroxine Sodium [Synthroid] 132 mcg PO SUTUFR 12/28/23 12/26/24 History metFORMIN HCL 500 mg PO AC-LUNCH 12/28/23 12/26/24 History lisinopriL [Zestril] 10 mg PO 1200 12/25/24 12/26/24 History Allergies Allergy/AdvReac Type Severity Reaction Status Date / Time cephalexin [From Keflex] Allergy Rash/Hives Verified 12/26/24 08:31 codeine Allergy Dyspnea Verified 12/26/24 08:31 Fish Containing Products AdvReac Nausea & Verified 12/26/24 08:31 Vomiting & Diarrhea Surgical - Exam Vital Signs Temp Pulse Resp BP Pulse Ox 97.7 F 64 17 135/90 99 12/26/24 08:30 12/26/24 08:30 12/26/24 08:30 12/26/24 08:30 12/26/24 08:30
[2024-12-26] MEDS ORDERED: PROPOFOL 10 MG/ML 20 ML VIAL IV ONE (08:43)
--- NOTE | 2024-12-26 09:11 | P.PCN ---
Date of Procedure: 12/26/24 Description of Procedure: PREOPERATIVE DIAGNOSIS: History of colon cancer, ascending colon History of right hemicolectomy Colon cancer surveillance/screening POSTOPERATIVE DIAGNOSIS: History of colon cancer, ascending colon History of right hemicolectomy Colon cancer surveillance/screening Constipation OPERATION: Colonoscopy to the cecum, ileocecal valve and appendiceal orifice. SURGEON: Arely Jean MD. ANESTHESIA: MAC. INDICATIONS: The patient is a 69-year-old female who presents for colonoscopy screening/surveillance following colon cancer resection 2023. Benefits and risks were described and informed consent was obtained. DESCRIPTION OF PROCEDURE: The patient had undergone Suprep. The patient had been brought into the operating room and laid in the left lateral decubitus position. After adequate intravenous sedation, the rectum was examined with 2% lidocaine jelly. No external hemorrhoids were encountered. The rectal tone was within normal limits. No lesions were palpated in the rectal vault. An Olympus colonoscope was advanced to the ileocecal anastomosis. The prep was fair. No large scattered diverticulosis was encountered. No colonic polyps were found. No evidence of focal colitis was found. Retroflexion of the scope demonstrated grade 1 internal hemorrhoids without active bleeding or inflammation. The colon was desufflated. The patient had tolerated the procedure well. Withdrawal time was over 6 minutes. FINDINGS: Aronchick preparation quality scale 3 (1-5) Internal hemorrhoids, grade 1 No external prolapsed hemorrhoids. No arteriovenous malformations. No adenomatous polyps. No focal colitis. Presence of right colectomy RECOMMENDATIONS: Lower endoscopy in 1 year, December 2025, yearly through 2028 Plan - Discharge Summary Discharge Rx Participant: No New Discharge Prescriptions: No Action Levothyroxine Sodium [Synthroid] 88 mcg PO MOWETHSA Bisoprolol-Hctz 2.5-6.25 mg [Ziac 2.5-6.25 MG] 1 tab PO 1200 metFORMIN HCL 500 mg PO AC-LUNCH lisinopriL [Zestril] 10 mg PO 1200 Levothyroxine Sodium [Synthroid] 132 mcg PO SUTUFR Cholecalciferol (Vitamin D3) [Vitamin D3 (50 Mcg = 2000 Iu)] 100 mcg PO MOTH Cholecalciferol (Vitamin D3) [Vitamin D3 (50 Mcg = 2000 Iu)] 50 mcg PO SUTUWEFRSA Discharge Medication List Bisoprolol-Hctz 2.5-6.25 mg [Ziac 2.5-6.25 MG] 1 tab PO 1200 12/28/23 [History] Cholecalciferol (Vitamin D3) [Vitamin D3 (50 Mcg = 2000 Iu)] 50 mcg PO SUTUWEFRSA 12/28/23 [History] Cholecalciferol (Vitamin D3) [Vitamin D3 (50 Mcg = 2000 Iu)] 100 mcg PO MOTH 12/28/23 [History] Levothyroxine Sodium [Synthroid] 88 mcg PO MOWETHSA 12/28/23 [History] Levothyroxine Sodium [Synthroid] 132 mcg PO SUTUFR 12/28/23 [History] metFORMIN HCL 500 mg PO AC-LUNCH 12/28/23 [History] lisinopriL [Zestril] 10 mg PO 1200 12/25/24 [History] Follow up Appointment(s)/Referral(s): Arely Jean MD [STAFF PHYSICIAN] - As Needed (Follow-up 1 year, November 2025) Patient Instructions/Handouts: Constipation (DC) Activity/Diet/Wound Care/Special Instructions: Repeat colonoscopy 1 year, November 2025. Discharge Disposition: HOME SELF-CARE
[2024-12-26 09:14] VITALS: RESP 16
[2024-12-26 09:22] VITALS: BP 119/57; PULSE 60
== END 2024-12-26 10:00 | disposition home or self-care (01) ==
LOC: ORWHC2ENDO 08:11
PROVIDERS: ATTEND Surgery Plastic and Reconstructive Surgery
DX: Z12.11 Encounter for screening for malignant neoplasm of colon (principal); K57.30 Diverticulosis of large intestine without perforation or abscess without bleeding; K64.0 First degree hemorrhoids; Z85.038 Personal history of other malignant neoplasm of large intestine; K58.0 Irritable bowel syndrome with diarrhea; I10 Essential (primary) hypertension; E11.9 Type 2 diabetes mellitus without complications; E07.9 Disorder of thyroid, unspecified; Z79.899 Other long term (current) drug therapy; Z90.49 Acquired absence of other specified parts of digestive tract; Z98.51 Tubal ligation status; Z90.89 Acquired absence of other organs; Z87.891 Personal history of nicotine dependence; Z79.890 Hormone replacement therapy; Z79.84 Long term (current) use of oral hypoglycemic drugs; Z88.1 Allergy status to other antibiotic agents; Z88.5 Allergy status to narcotic agent; Z91.013 Allergy to seafood
CPT/HCPCS: J2704; G0105